=== PATIENT | female | born 1945 | race Caucasian/White ===

== ENCOUNTER → 2017-12-17 | Outpatient (CLI) | payer OTHER, MEDICARE ==
[~2017-12-17] MED LIST: ASPI-515; ATOR40TA; CHOL100011; CLOP75TA52; ESOM40SU; FEXO180T; FURO-93; LUTE1CAP2; MULT1CAP19; NITR0.4T28 SL; POTA20PA; RAMI10CA36; VIT1TABL34
== END | disposition home or self-care (01) ==
LOC: CFH 06:58
PROVIDERS: ATTEND Internal Medicine Cardiovascular Disease
DX: I08.3 Combined rheumatic disorders of mitral, aortic and tricuspid valves (principal); I10 Essential (primary) hypertension; E78.5 Hyperlipidemia, unspecified; R00.2 Palpitations
CPT/HCPCS: 93306

== ENCOUNTER → 2019-08-23 | Outpatient (CLI) | payer OTHER, MEDICARE ==
[~2019-08-23] MED LIST changes: -POTA20PA; +POTA20PA31
== END | disposition home or self-care (01) ==
LOC: CFH 09:35
PROVIDERS: ATTEND Internal Medicine Cardiovascular Disease
DX: I08.3 Combined rheumatic disorders of mitral, aortic and tricuspid valves (principal); I10 Essential (primary) hypertension; E78.5 Hyperlipidemia, unspecified
CPT/HCPCS: 93306

== ENCOUNTER 2020-02-23 11:26 | Day surgery (SDC) | payer OTHER, MEDICARE ==
[~2020-02-23] VITALS: Ht 147.3 cm; Wt 49.1 kg
[~2020-02-23 11:26] MED LIST changes: +AMLO10TA8 PO; +APIX5TAB PO; +BUPIVACAINE/EPI 0.5% 1:200K ONE; +METO50TA82 PO; -RAMI10CA36; +RAMI10CA36 PO; +SITA100T PO
[2020-02-23] MEDS ORDERED: CHLORHEXIDINE 15 ML UDC MM STA (11:37)
[2020-02-23] MEDS ORDERED: LACTATED RINGERS 1,000 ML IV SCH (11:38)
[2020-02-23] MEDS ORDERED: PROPOFOL 10 MG/ML, 20ML ONE (12:44)
[2020-02-23] MEDS ORDERED: CEFAZOLIN 1,000 MG ONE ×4 (12:45)
[2020-02-23] MEDS ORDERED: FENTANYL PF 250 MCG/5ML ONE (13:47)
[2020-02-23] MEDS ORDERED: DEXAMETHASONE 4 MG/ML, 1ML ONE (13:58)
[2020-02-23] MEDS ORDERED: ONDANSETRON 2MG/ML, 2ML ONE (13:58)
[2020-02-23] MEDS ORDERED: LABETALOL 5MG/ML, 20ML IV PRN (14:00)
[2020-02-23] MEDS ORDERED: FENTANYL PF 100 MCG/2ML IV PRN (14:00)
[2020-02-23] MEDS ORDERED: hydrALAzine 20 MG/ML, 1ML IV PRN (14:00)
[2020-02-23] MEDS ORDERED: HYDROmorphone 1 MG/ML, 1ML INJ IVPush PRN (14:00)
[2020-02-23] MEDS ORDERED: OXYcodone 5 MG/5 ML ORAL.SOL UDC PO PRN (14:00)
[2020-02-23] MEDS ORDERED: morphine SULFATE 10 MG/ML, 1ML IVPush PRN (14:00)
[2020-02-23] MEDS ORDERED: MEPERIDINE/PF 25MG/0.5ML IVPush PRN (14:00)
[2020-02-23] MEDS ORDERED: PROMETHAZINE 25 MG/ML, 1ML IVPush PRN (14:00)
[2020-02-23] MEDS ORDERED: HALOPERIDOL 5 MG/ML IV PRN (14:00)
[2020-02-23] MEDS ORDERED: ACETAMINOPHEN 325 MG TABLET PO PRN (14:00)
[2020-02-23] MEDS ORDERED: BACITRACIN 50,000 UNIT ONE (14:42)
== END 2020-02-23 17:15 | disposition home or self-care (01) ==
LOC: OUT 11:26
PROVIDERS: ATTEND Orthopaedic Surgery
DX: T84.84XA Pain due to internal orthopedic prosthetic devices, implants and grafts, initial encounter (principal); M19.042 Primary osteoarthritis, left hand; M19.041 Primary osteoarthritis, right hand; I10 Essential (primary) hypertension; I25.10 Atherosclerotic heart disease of native coronary artery without angina pectoris; I48.0 Paroxysmal atrial fibrillation; E78.00 Pure hypercholesterolemia, unspecified; E78.2 Mixed hyperlipidemia; Y82.8 Other medical devices associated with adverse incidents; Z79.899 Other long term (current) drug therapy; Z79.01 Long term (current) use of anticoagulants; Z72.89 Other problems related to lifestyle; Z79.1 Long term (current) use of non-steroidal anti-inflammatories (NSAID); Z79.4 Long term (current) use of insulin; Z87.891 Personal history of nicotine dependence; Z82.49 Family history of ischemic heart disease and other diseases of the circulatory system
CPT/HCPCS: 26536; C1713; C1776; J0690; J1100; J2405; J2704; J3010; J7120

== ENCOUNTER → 2020-05-06 | Outpatient (CLI) | payer OTHER, MEDICARE ==
[~2020-05-06] MED LIST changes: +AMLO-211 PO; -AMLO10TA8 PO; -BUPIVACAINE/EPI 0.5% 1:200K ONE
== END | disposition home or self-care (01) ==
LOC: STAR 10:28
PROVIDERS: ATTEND Anesthesiology
DX: Z20.828 Contact with and (suspected) exposure to other viral communicable diseases (principal)
CPT/HCPCS: 87635

== ENCOUNTER 2020-05-10 11:16 | Day surgery (SDC) | payer OTHER, MEDICARE ==
[~2020-05-10] VITALS: Ht 147.3 cm; Wt 50.3 kg
[2020-05-10 11:55] VITALS: BP 125/80
[2020-05-10] MEDS ORDERED: CHLORHEXIDINE 15 ML UDC MM ONE (12:00)
[2020-05-10] MEDS ORDERED: LACTATED RINGERS 1,000 ML IV SCH (12:00)
[2020-05-10] MEDS ORDERED: FENTANYL PF 250 MCG/5ML ONE (12:30)
[2020-05-10] MEDS ORDERED: BUPIVACAINE/PF 0.5% ONE (12:58)
[2020-05-10] MEDS ORDERED: HALOPERIDOL 5 MG/ML IV PRN (13:30)
[2020-05-10] MEDS ORDERED: morphine SULFATE 10 MG/ML, 1ML IVPush PRN (13:30)
[2020-05-10] MEDS ORDERED: hydrALAzine 20 MG/ML, 1ML IV PRN (13:30)
[2020-05-10] MEDS ORDERED: LABETALOL 5MG/ML, 20ML IV PRN (13:30)
[2020-05-10] MEDS ORDERED: PROMETHAZINE 25 MG/ML, 1ML IVPush PRN (13:30)
[2020-05-10] MEDS ORDERED: HYDROmorphone 1 MG/ML, 1ML INJ IVPush PRN (13:30)
[2020-05-10] MEDS ORDERED: OXYcodone 5 MG/5 ML ORAL.SOL UDC PO PRN (13:30)
[2020-05-10] MEDS ORDERED: MEPERIDINE/PF 25MG/0.5ML IVPush PRN (13:30)
[2020-05-10] MEDS ORDERED: ACETAMINOPHEN 325 MG TABLET PO PRN (13:30)
[2020-05-10] MEDS ORDERED: FENTANYL PF 100 MCG/2ML IV PRN (13:30)
[2020-05-10] MEDS ORDERED: ONDANSETRON 2MG/ML, 2ML ONE (13:41)
[2020-05-10] MEDS ORDERED: DEXAMETHASONE 4 MG/ML, 1ML ONE (13:41)
[2020-05-10] MEDS ORDERED: CEFAZOLIN 1,000 MG ONE (13:41)
[2020-05-10] MEDS ORDERED: PROPOFOL 10 MG/ML, 20ML ONE (13:41)
== END 2020-05-10 16:00 | disposition home or self-care (01) ==
LOC: OUT 11:16
PROVIDERS: ATTEND Orthopaedic Surgery
DX: T84.89XA Other specified complication of internal orthopedic prosthetic devices, implants and grafts, initial encounter (principal); M19.042 Primary osteoarthritis, left hand; M25.742 Osteophyte, left hand; I10 Essential (primary) hypertension; E11.9 Type 2 diabetes mellitus without complications; K21.9 Gastro-esophageal reflux disease without esophagitis; I25.10 Atherosclerotic heart disease of native coronary artery without angina pectoris; Z79.01 Long term (current) use of anticoagulants; Z79.02 Long term (current) use of antithrombotics/antiplatelets; Z79.84 Long term (current) use of oral hypoglycemic drugs; Z79.891 Long term (current) use of opiate analgesic; Z79.899 Other long term (current) drug therapy; Z87.891 Personal history of nicotine dependence; Z95.5 Presence of coronary angioplasty implant and graft; Z98.890 Other specified postprocedural states; Y83.8 Other surgical procedures as the cause of abnormal reaction of the patient, or of later complication, without mention of misadventure at the time of the procedure
CPT/HCPCS: 26860; 73140; C1762; J0690; J1100; J2405; J2704; J3010; J7120; 76000

== ENCOUNTER → 2020-12-10 | Outpatient (CLI) | payer MEDICARE, OTHER ==
[~2020-12-10] MED LIST changes: +ASCO100018 PO; -ASPI-515; +ASPI-963; +CHOL10003 PO; +POTA20TA89 PO; +[UNRECOGNIZED DRUG - OTHER] PO
== END | disposition home or self-care (01) ==
LOC: STAR 14:14
PROVIDERS: ATTEND Obstetrics & Gynecology Female Pelvic Medicine and Reconstructive Surgery
DX: Z20.822 Contact with and (suspected) exposure to COVID-19 (principal); N81.10 Cystocele, unspecified; N95.2 Postmenopausal atrophic vaginitis
CPT/HCPCS: U0003; U0005

== ENCOUNTER 2020-12-16 05:42 | Day surgery (SDC) | payer OTHER, MEDICARE ==
[~2020-12-16] VITALS: Ht 147.3 cm; Wt 97.9 kg
[~2020-12-16 05:42] MED LIST changes: -ATOR40TA; +ATOR40TA PO; -ESOM40SU; +ESOM40SU PO; -FURO-93; +FURO-93 PO
[2020-12-16 06:25] VITALS: BP 167/82
[2020-12-16] MEDS ORDERED: LACTATED RINGERS 1,000 ML IV SCH ×2 (06:30→10:30)
[2020-12-16] MEDS ORDERED: CHLORHEXIDINE 15 ML UDC PO ONE (06:30)
[2020-12-16] MEDS ORDERED: EPINEPHRINE 1 MG/ML, 1ML ONE (06:49)
[2020-12-16] MEDS ORDERED: BUPIVACAINE/PF 0.25% ONE (06:49)
[2020-12-16] MEDS ORDERED: FLUORESCEIN SODIUM 500 MG/5 ML ONE (06:49)
[2020-12-16] MEDS ORDERED: VANCOMYCIN 1,000 MG ONE (06:50)
[2020-12-16] MEDS ORDERED: CEFAZOLIN 1,000 MG ONE ×2 (06:50→09:39)
[2020-12-16] MEDS ORDERED: GENTAMICIN 80 MG/2 ML ONE (06:50)
[2020-12-16] MEDS ORDERED: FENTANYL PF 250 MCG/5ML ONE (07:21)
[2020-12-16] MEDS ORDERED: PROPOFOL 10 MG/ML, 20ML ONE ×2 (07:25→09:39)
[2020-12-16] MEDS ORDERED: DEXAMETHASONE 4 MG/ML, 1ML ONE (09:39)
[2020-12-16] MEDS ORDERED: SUCCINYLCHOLINE 20 MG/ML, 10ML ONE (09:39)
[2020-12-16] MEDS ORDERED: ROCURONIUM 10MG/ML,5ML ONE (09:39)
[2020-12-16] MEDS ORDERED: ONDANSETRON 2MG/ML, 2ML ONE (09:39)
[2020-12-16] MEDS ORDERED: NEOSTIGMINE 1 MG/ML, 10ML ONE (09:39)
[2020-12-16] MEDS ORDERED: GLYCOPYRROLATE 0.2MG/1ML, 5ML ONE (09:39)
[2020-12-16] MEDS ORDERED: FENTANYL PF 100 MCG/2ML IV PRN (10:00)
[2020-12-16] MEDS ORDERED: HYDROmorphone 1 MG/ML, 1ML INJ IVPush PRN (10:00)
[2020-12-16] MEDS ORDERED: METHOCARBAMOL 1,000 MG in DEXTROSE 5% 100 ML IV PRN (10:00)
[2020-12-16] MEDS ORDERED: PROMETHAZINE 25 MG/ML, 1ML IVPush PRN (10:00)
[2020-12-16] MEDS ORDERED: hydrALAzine 20 MG/ML, 1ML IV PRN (10:00)
[2020-12-16] MEDS ORDERED: ONDANSETRON 2MG/ML, 2ML IVPush PRN ×2 (10:00→10:30)
[2020-12-16] MEDS ORDERED: LORazepam 2 MG/ML, 1ML IVPush PRN (10:00)
[2020-12-16] MEDS ORDERED: LABETALOL 5MG/ML, 20ML IV PRN (10:00)
[2020-12-16] MEDS ORDERED: OXYcodone 5 MG/5 ML ORAL.SOL UDC PO PRN (10:00)
[2020-12-16] MEDS ORDERED: PROMETHAZINE 25 MG SUPP PR PRN (10:00)
[2020-12-16] MEDS ORDERED: ACETAMINOPHEN 325 MG TABLET PO PRN (10:00)
[2020-12-16] MEDS ORDERED: DIAZEPAM 5 MG/ML, 2ML IVPush PRN (10:00)
[2020-12-16] MEDS ORDERED: ACETAMINOPHEN 650 MG/20.3 ML UDC ONE (10:28)
[2020-12-16] MEDS ORDERED: OXYcodone 5 MG/5 ML ORAL.SOL UDC ONE (10:28)
[2020-12-16] MEDS ORDERED: FENTANYL PF 100 MCG/2ML ONE (10:28)
[2020-12-16] MEDS ORDERED: IBUPROFEN 600 MG TABLET PO PRN (10:30)
[2020-12-16] MEDS ORDERED: PROMETHAZINE 12.5 MG SUPP PR ONE (10:30)
[2020-12-16] MEDS ORDERED: HYDROcodone/APAP 5/325 TABLET PO PRN (10:30)
== END 2020-12-16 16:20 | disposition home or self-care (01) ==
LOC: OUT 05:42
PROVIDERS: ATTEND Obstetrics & Gynecology Female Pelvic Medicine and Reconstructive Surgery
DX: N95.2 Postmenopausal atrophic vaginitis (principal); N81.10 Cystocele, unspecified; I25.10 Atherosclerotic heart disease of native coronary artery without angina pectoris; I48.91 Unspecified atrial fibrillation; G47.33 Obstructive sleep apnea (adult) (pediatric); Z79.899 Other long term (current) drug therapy; Z98.890 Other specified postprocedural states; Z79.01 Long term (current) use of anticoagulants; Z72.89 Other problems related to lifestyle; Z87.891 Personal history of nicotine dependence
CPT/HCPCS: 57283; 57288; 58542; 82962; 88307; C1771; C1781; J0171; J0690; J1100; J2405; J2704; J2710; J2800; J3010; J3370; J7120; J0330; J1580